=== PATIENT | female | born 1990 | race Caucasian/White ===

== ENCOUNTER 2018-01-03 22:36 | Emergency (ER) | payer OTHER ==
[2018-01-03 23:56] VITALS: RESP 18
--- NOTE | 2018-01-04 00:30 | XR ---
EXAMINATION TYPE: XR chest 2V DATE OF EXAM: 01/04/2018 COMPARISON: NONE HISTORY: Chest pain TECHNIQUE: Frontal and lateral views of the chest are obtained. FINDINGS: Heart and mediastinum are normal. Lungs are clear. Diaphragm is normal. Bony thorax appear s normal. IMPRESSION: Normal chest.
--- NOTE | 2018-01-04 00:46 | ED ---
General Adult HPI - General Chief complaint: Skin/Abscess/Foreign Body Stated complaint: rash Time Seen by Provider: 01/03/18 23:43 Source: patient Mode of arrival: ambulatory Limitations: no limitations - History of Present Illness Initial comments: 27 her old female presents to the emergency determine for chief complaint of rash 4 days. Patient states the rash is very itchy. Patient states her grandmother thought it might be shingles. Patient does admit to having chickenpox as a child. She denies any fevers or chills. Patient states she has had a cough for the past day and is a smoker. She denies a history of asthma. Patient denies any other past medical history. She denies being diabetic. Patient does have a primary care provider that she can follow-up with.Patient has no other complaints at this time including shortness of breath , chest pain, abdominal pain, nausea or vomiting, headache, or visual changes. - Related Data Previous Rx's Medication Instructions Recorded valACYclovir HCL [Valacyclovir] 1,000 mg PO Q8H 7 Days tab 01/04/18 Allergies Allergy/AdvReac Type Severity Reaction Status Date / Time No Known Allergies Allergy Verified 01/03/18 22:48 Review of Systems ROS Statement: Those systems with pertinent positive or pertinent negative responses have been documented in the HPI. ROS Other: All systems not noted in ROS Statement are negative. Past Medical History Past Medical History: No Reported History History of Any Multi-Drug Resistant Organisms: None Reported Past Surgical History: Section Past Psychological History: No Psychological Hx Reported Smoking Status: Current every day smoker Past Alcohol Use History: Occasional Past Drug Use History: Marijuana General Exam Limitations: no limitations General appearance: alert, in no apparent distress Head exam: Present: atraumatic, normocephalic, normal inspection Eye exam: Present: normal appearance, PERRL, EOMI. Absent: scleral icterus, conjunctival injection, periorbital swelling ENT exam: Present: normal exam, normal oropharynx, mucous membranes moist, normal external ear exam Neck exam: Present: normal inspection, full ROM. Absent: tenderness, meningismus, lymphadenopathy Respiratory exam: Present: normal lung sounds bilaterally. Absent: respiratory distress, wheezes, rales, rhonchi, stridor Cardiovascular Exam: Present: regular rate, normal rhythm, normal heart sounds. Absent: systolic murmur, diastolic murmur, rubs, gallop, clicks GI/Abdominal exam: Present: soft, normal bowel sounds. Absent: distended, tenderness, guarding, rebound, rigid Neurological exam: Present: alert, oriented X3, CN II-XII intact Psychiatric exam: Present: normal affect, normal mood Skin exam: Present: rash (Patient does have patches of vesicles noted throughout the left T5 dermatome. Some are crusting. No superficial infection noted. No rash noted to the right side of body.) Course Vital Signs 01/03/18 01/03/18 22:45 23:51 Temperature 98.9 F Pulse Rate 75 Respiratory 16 18 Rate Blood Pressure 119/71 O2 Sat by Pulse 99 Oximetry Medical Decision Making - Medical Decision Making 89 her old female presents to the emergency room for a chief complaint of rash 4 days. Rash does appear to be shingles. There are vesicles noted throughout T5 dermatome on only the left side of the body. Patient also has a cough. Chest x-ray shows a normal chest. Lungs are clear. Discussed with patient that it is rare for someone her age to have shingles. Discussed possibility of immunosuppression and importance of following up with primary care provider for this. Patient will be treated with valacyclovir. She will return to the emergency Department if she has any worsening symptoms which were discussed with her. Dr Moore also saw patient - Lab Data Lab Results 01/03/18 Range/Units 23:56 Urine HCG, Qual Not Detected (Not Detectd) Disposition Clinical Impression: Herpes zoster Disposition: HOME SELF-CARE Condition: Good Instructions: Shingles (ED) Additional Instructions: Please take medication as directed. Please follow-up with primary care in 1-2 days. Return immediately to the emergency department if you have any worsening symptoms or fevers. Prescriptions: valACYclovir HCL [Valacyclovir] 1,000 mg PO Q8H 7 Days tab Is patient prescribed a controlled substance at d/c from ED?: No Referrals: Pati Palafox DO [Primary Care Provider] - 1-2 days Time of Disposition: 01:16
[2018-01-04 01:11] VITALS: BP 117/63; PULSE 68; TEMP 98.3
== END 2018-01-04 01:33 | disposition home or self-care (01) ==
LOC: EC 22:36
DX: B02.9 Zoster without complications (principal); R05 Cough; F17.200 Nicotine dependence, unspecified, uncomplicated; Z32.02 Encounter for pregnancy test, result negative
CPT/HCPCS: 71046; 81025; 99283

== ENCOUNTER 2018-03-01 11:16 | Emergency (ER) | payer OTHER ==
[2018-03-01 11:29] VITALS: BP 103/69; PULSE 89; RESP 20; TEMP 97.8
[2018-03-01] MEDS ORDERED: PROPARACAINE 0.5% OPHTH DROPS 15 ML BTL RIGHT EYE STA (11:31)
[2018-03-01] MEDS ORDERED: TOBRAMYCIN 0.3% OPHTH DROPS 5 ML BTL RIGHT EYE STA (11:46)
[2018-03-01] MEDS ORDERED: DIPH,PERTUS(ACELL)TETVAC-LF 0.5 ML VIAL IM ONE (11:46)
--- NOTE | 2018-03-01 11:51 | ED ---
Eye Problem HPI - General Chief complaint: Eye Problems Stated complaint: Eye Problems Time Seen by Provider: 03/01/18 11:31 Source: patient, RN notes reviewed Mode of arrival: ambulatory Limitations: no limitations - History of Present Illness Initial comments: 28-year-old female presents emergency Department with chief complaint of right eye irritation. Patient states she woke up with the symptoms. Patient states her eye is watering and feels as a foreign body. Denies any trauma she does not wear glasses or contacts. Patient denies any trauma. She is unsure when her last tetanus was. Patient states that it was improved with icing at home. She states that it is improved when she keeps her eyes closed - Related Data Previous Rx's Medication Instructions Recorded valACYclovir HCL [Valacyclovir] 1,000 mg PO Q8H 7 Days tab 01/04/18 Allergies Allergy/AdvReac Type Severity Reaction Status Date / Time No Known Allergies Allergy Verified 03/01/18 11:29 Review of Systems ROS Statement: Those systems with pertinent positive or pertinent negative responses have been documented in the HPI. ROS Other: All systems not noted in ROS Statement are negative. Past Medical History Past Medical History: No Reported History History of Any Multi-Drug Resistant Organisms: None Reported Past Surgical History: Section Past Psychological History: No Psychological Hx Reported Smoking Status: Current every day smoker Past Alcohol Use History: Occasional Past Drug Use History: Marijuana General Exam Limitations: no limitations General appearance: alert, in no apparent distress Head exam: Present: atraumatic, normocephalic, normal inspection Eye exam: Present: PERRL, EOMI, conjunctival injection (Right), other (Right eye fluorescein dye was use, slit-lamp which shows corneal abrasion from the 4: 00 to 7 o'clock position no ulceration patient had full relief of symptoms with proparacaine). Absent: normal appearance, scleral icterus, periorbital swelling ENT exam: Present: normal exam, normal oropharynx, mucous membranes moist Neck exam: Present: normal inspection, full ROM. Absent: tenderness, meningismus, lymphadenopathy Respiratory exam: Present: normal lung sounds bilaterally. Absent: respiratory distress, wheezes, rales, rhonchi, stridor Cardiovascular Exam: Present: regular rate, normal rhythm, normal heart sounds. Absent: systolic murmur, diastolic murmur, rubs, gallop, clicks Skin exam: Present: warm, dry, intact, normal color. Absent: rash Course Vital Signs 03/01/18 11:27 Temperature 97.8 F Pulse Rate 89 Respiratory 20 Rate Blood Pressure 103/69 O2 Sat by Pulse 98 Oximetry Medical Decision Making - Medical Decision Making 28-year-old female presented for right eye irritation. Patient has a corneal abrasion. Patient was started on Tobrex eyedrops 1 drop every 4 hours for 5 days. Patient follow-up with ophthalmology. Patient's tetanus is updated. Disposition Clinical Impression: Corneal abrasion Disposition: HOME SELF-CARE Condition: Stable Instructions: Corneal Abrasion (ED) Additional Instructions: Please return to the Emergency Department if symptoms worsen or any other concerns. Is patient prescribed a controlled substance at d/c from ED?: No Referrals: Evelin Antunez DO [Primary Care Provider] - 1-2 days Galindo White MD [STAFF PHYSICIAN] - 1-2 days Time of Disposition: 11:51
== END 2018-03-01 12:16 | disposition home or self-care (01) ==
LOC: EC 11:16
DX: S05.01XA Injury of conjunctiva and corneal abrasion without foreign body, right eye, initial encounter (principal); F17.200 Nicotine dependence, unspecified, uncomplicated; Z23 Encounter for immunization
CPT/HCPCS: 90471; 90715; 99283

== ENCOUNTER 2018-07-21 13:00 | Emergency (ER) | payer OTHER ==
[2018-07-21] MEDS ORDERED: DIPH,PERTUS(ACELL)TETVAC-LF 0.5 ML VIAL IM ONE (13:51)
[2018-07-21] MEDS ORDERED: TOPICAL SKIN ADHESIVE 1 EACH AMP TOPICAL ONE (13:51)
--- NOTE | 2018-07-21 13:59 | ED ---
General Adult HPI - General Chief complaint: Wound/Laceration Stated complaint: Finger laceration, [facility] Time Seen by Provider: 07/21/18 13:32 Source: patient, RN notes reviewed Mode of arrival: ambulatory Limitations: no limitations - History of Present Illness Initial comments: Patient 28-year-old female presented to the emergency room today with chief complaint of laceration to the third digit of the right hand. 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 She states she's unsure of her tetanus status. Patient says that she was able to stop bleeding. Patient states she has full range motion. She denies any other complaints or symptoms. Patient denies any recent fever, chills, shortness of breath, chest pain, back pain, abdominal pain, nausea or vomiting, numbness or tingling, headaches or visual changes, or any other complaints. - Related Data Previous Rx's Medication Instructions Recorded valACYclovir HCL [Valacyclovir] 1,000 mg PO Q8H 7 Days tab 01/04/18 Allergies Allergy/AdvReac Type Severity Reaction Status Date / Time No Known Allergies Allergy Verified 07/21/18 13:21 Review of Systems ROS Statement: Those systems with pertinent positive or pertinent negative responses have been documented in the HPI. ROS Other: All systems not noted in ROS Statement are negative. Past Medical History Past Medical History: No Reported History History of Any Multi-Drug Resistant Organisms: None Reported Past Surgical History: Section Past Psychological History: No Psychological Hx Reported Smoking Status: Current every day smoker Past Alcohol Use History: Occasional Past Drug Use History: Marijuana General Exam - General Exam Comments Initial Comments: General: The patient is awake and alert, in no distress, and does not appear acutely ill. Eye: There is normal conjunctiva bilaterally. No signs of icterus. Ears, nose, mouth and throat: There are moist mucous membranes and no oral lesions. Neck: The neck is supple, there is no tenderness or JVD. Musculoskeletal: Normal ROM, no tenderness. Strength 5/5. Sensation intact. Pulses equal bilaterally 2+. Neurological: A&O x 3. CN II-XII intact, There are no obvious motor or sensory deficits. Coordination appears grossly intact. Speech is normal. Skin: Patient does have a 1 cm linear laceration running on an angle to the lateral aspect of the third digit of the right hand. No active bleeding. Psychiatric: Cooperative, appropriate mood & affect, normal judgment. Limitations: no limitations Course Vital Signs 07/21/18 13:19 Temperature 98.5 F Pulse Rate 69 Respiratory 18 Rate Blood Pressure 110/60 O2 Sat by Pulse 99 Oximetry Procedures - Procedures Initial comment: Patient does have 1 cm linear laceration to the third digit of the right hand. This was cleaned and irrigated with Betadine and saline. Wound edges were approximated and closed with Dermabond. Patient tolerated well. Medical Decision Making - Medical Decision Making Patient tetanus updated here in the emergency room. Wound edges were closed with Dermabond. Patient discharged home advised watch for any signs of infection. Advised return for any other concerns. Disposition Clinical Impression: Laceration Disposition: HOME SELF-CARE Condition: Good Instructions (If sedation given, give patient instructions): Finger Laceration (ED) Additional Instructions: Please allow the glue to fall thoughts over the next 3-5 days. Warfarin signs of infection which may include increased pain times one, redness, fever or chills. Return here to the emergency room symptoms increase worsen or for any other concerns. Is patient prescribed a controlled substance at d/c from ED?: No Referrals: Evelin Antunez DO [Primary Care Provider] - 1-2 days Time of Disposition: 14:54
[2018-07-21 14:58] VITALS: BP 133/76; PULSE 62; RESP 19; TEMP 97.4
== END 2018-07-21 14:58 | disposition home or self-care (01) ==
LOC: EC 13:00
DX: S61.212A Laceration without foreign body of right middle finger without damage to nail, initial encounter (principal); F17.200 Nicotine dependence, unspecified, uncomplicated; Z23 Encounter for immunization; W26.0XXA Contact with knife, initial encounter; Y93.G1 Activity, food preparation and clean up; Y92.69 Other specified industrial and construction area as the place of occurrence of the external cause; Y99.0 Civilian activity done for income or pay
CPT/HCPCS: 12001; 90471; 90715; 99282

== ENCOUNTER 2019-04-03 12:12 | Emergency (ER) | payer OTHER ==
[2019-04-03 13:22] VITALS: RESP 18
--- NOTE | 2019-04-03 13:56 | XR ---
EXAMINATION TYPE: XR chest 2V, XR ribs 4 views RT DATE OF EXAM: 04/03/2019 COMPARISON: 01/04/2018 HISTORY: 29-year-old female with cough and right-sided rib pain FINDINGS: The cardiomediastinal silhouette, aorta, and pulmonary vasculature are within normal limits. Mild lorie tral peribronchial cuffing. Otherwise, lungs and pleural spaces are clear. No displaced right rib fracture. IMPRESSION: Mild central peribronchial cuffing can be seen with bronchitis or asthma. Otherwise, no acute cardiop ulmonary process. No displaced right rib fracture.
[2019-04-03] MEDS ORDERED: IPRATROPIUM-ALBUTEROL 3 ML NEB INHALATION STA (14:00)
[2019-04-03] MEDS ORDERED: methylPREDNISolone SOD SUCCI 125 MG/2 ML VIAL IM ONE (14:00)
[2019-04-03] MEDS ORDERED: IBUPROFEN 600 MG STARTER PACK 4 TAB BTL PO STA (14:26)
--- NOTE | 2019-04-03 14:26 | ED ---
URI HPI - General Source: patient, RN notes reviewed, old records reviewed Mode of arrival: ambulatory Limitations: no limitations <Fabby Jain - Last Filed: 04/04/19 06:38> <Kaylan Mclean - Last Filed: 04/04/19 22:20> - General Chief Complaint: Upper Respiratory Infection Stated Complaint: cough/rib pain Time Seen by Provider: 04/03/19 13:38 - History of Present Illness Initial Comments: Patient's pleasant 21-year-old female sensory prescription today with cough for the past 3 weeks. Patient reports she had a coughing fit today and felt a pop in her right ribs. Patient states that she had worsening pain since then. Patient states that she is a smoker. She states she's trying to quit. She denies any significant fever as of lately but did have a fever a few weeks ago. Patient states that she's had no chest pain at this time denies any abdominal pain nausea or vomiting. (Fabby Jain) - Related Data Previous Rx's Medication Instructions Recorded valACYclovir HCL [Valacyclovir] 1,000 mg PO Q8H 7 Days tab 01/04/18 Albuterol Inhaler [Ventolin Hfa 1 - 2 puff INHALATION RT-Q6H PRN 04/03/19 Inhaler] #1 inhaler Azithromycin [Zithromax Z-pack] 250 mg PO DIRECTED #6 tab 04/03/19 methylPREDNISolone Dose Pack 4 mg PO DIRECTED #21 package 04/03/19 [Medrol Dose Pack] Allergies Allergy/AdvReac Type Severity Reaction Status Date / Time No Known Allergies Allergy Verified 04/03/19 13:16 Review of Systems ROS Other: All systems not noted in ROS Statement are negative. <Fabby Jain - Last Filed: 04/04/19 06:38> ROS Other: All systems not noted in ROS Statement are negative. <Kaylan Mclean - Last Filed: 04/04/19 22:20> ROS Statement: Those systems with pertinent positive or pertinent negative responses have been documented in the HPI. Past Medical History Past Medical History: No Reported History History of Any Multi-Drug Resistant Organisms: None Reported Past Surgical History: Section Past Psychological History: No Psychological Hx Reported Smoking Status: Current every day smoker Past Alcohol Use History: Occasional Past Drug Use History: Marijuana <Fabby Jain - Last Filed: 04/04/19 06:38> General Exam Limitations: no limitations General appearance: alert, in no apparent distress Head exam: Present: atraumatic, normocephalic, normal inspection Eye exam: Present: normal appearance, PERRL, EOMI. Absent: scleral icterus, conjunctival injection, periorbital swelling ENT exam: Present: normal exam, mucous membranes moist Neck exam: Present: normal inspection. Absent: tenderness, meningismus, lymphadenopathy Respiratory exam: Present: wheezes, other (She has tenderness over the right ribs.). Absent: normal lung sounds bilaterally, respiratory distress, rales, rhonchi, stridor Cardiovascular Exam: Present: regular rate, normal rhythm, normal heart sounds. Absent: systolic murmur, diastolic murmur, rubs, gallop, clicks GI/Abdominal exam: Present: soft, normal bowel sounds. Absent: distended, tenderness, guarding, rebound, rigid Extremities exam: Present: normal inspection, full ROM, normal capillary refill. Absent: tenderness, pedal edema, joint swelling, calf tenderness Back exam: Present: normal inspection Neurological exam: Present: alert, oriented X3, CN II-XII intact Psychiatric exam: Present: normal affect, normal mood Skin exam: Present: warm, dry, intact, normal color. Absent: rash <Fabby Jain - Last Filed: 04/04/19 06:38> - General Exam Comments Initial Comments: Alert and oriented 21-year-old female. No distress. (Fabby Jain) Course Vital Signs 04/03/19 04/03/19 04/03/19 13:16 14:11 14:20 Temperature 98.6 F Pulse Rate 69 72 78 Respiratory 18 Rate Blood Pressure 113/69 O2 Sat by Pulse 97 Oximetry 04/03/19 14:52 Temperature 98.2 F Pulse Rate 72 Respiratory 18 Rate Blood Pressure 129/67 O2 Sat by Pulse 98 Oximetry Medical Decision Making <SusyFabby - Last Filed: 04/04/19 06:38> <Kaylan Mclean - Last Filed: 04/04/19 22:20> - Medical Decision Making 3-year-old female with 3 weeks of cough. She did coughing spell and popping sensation in her right rib. She does have some tenderness. No bruising. Patient's chest x-ray shows evidence of asthmatic bronchitis picture. No focal pneumonia. Patient did have significant wheezing. She is given IM Solu-Medrol, and breathing treatment and she has had improvement of her breathing after DuoNeb. Patient at this time of discharge with diagnosis of bronchitis. With p ersistent cough for 3 weeks discussed covering for atypical pneumonia. Patient be discharged with steroids and azithromycin as well as albuterol inhaler. Discussed return parameters and PCP follow-up. (Fabby Jain) I was available for consultation in the emergency department. The history and physical exam were done by the midlevel provider. I was consulted for this [facility]. I reviewed the case with the midlevel provider and based on their presentation of the patient, I agree with the assessment, medical decision making and plan of care as documented. Chart was dictated using [employer] dictation software. Attempts were made to correct any dictation errors however some typographical errors may persist. (Kaylan Mclean) Disposition Is patient prescribed a controlled substance at d/c from ED?: No Time of Disposition: 14:25 <Fabby Jain - Last Filed: 04/04/19 06:38> <Kaylan Mclean - Last Filed: 04/04/19 22:20> Clinical Impression: Bronchitis, Rib tenderness Disposition: HOME SELF-CARE Condition: Good Instructions (If sedation given, give patient instructions): Acute Bronchitis (ED) Additional Instructions: Patient advised to follow-up with your primary care physician. Take the antibiotics and steroids as prescribed. Using inhaler as well. Return to the emergency department if any alarming signs or symptoms occur. Prescriptions: methylPREDNISolone Dose Pack [Medrol Dose Pack] 4 mg PO DIRECTED #21 package Albuterol Inhaler [Ventolin Hfa Inhaler] 1 - 2 puff INHALATION RT-Q6H PRN #1 inhaler PRN Reason: Shortness Of Breath Azithromycin [Zithromax Z-pack] 250 mg PO DIRECTED #6 tab Referrals: Evelin Antunez DO [Primary Care Provider] - 1-2 days
[2019-04-03 14:56] VITALS: BP 129/67; PULSE 72; TEMP 98.2
== END 2019-04-03 14:52 | disposition home or self-care (01) ==
LOC: EC 12:12
DX: J40 Bronchitis, not specified as acute or chronic (principal); R07.81 Pleurodynia; F17.200 Nicotine dependence, unspecified, uncomplicated
CPT/HCPCS: 94640; 71100; 71046; 99284; 96372; J2930

== ENCOUNTER 2021-08-23 02:30 | Emergency (ER) | payer OTHER ==
[2021-08-23 04:05] VITALS: TEMP 98
[2021-08-23] MEDS ORDERED: ACETAMINOPHEN TAB 500 MG TAB PO STA (04:07)
[2021-08-23] MEDS ORDERED: ONDANSETRON ODT 4 MG TAB PO STA (04:07)
[2021-08-23 05:23] LABS: Appearance,Urine Clear (Clear); Bacteria,Urine Rare /hpf; Bilirubin,Urine Negative (Negative); Blood,Urine Moderate (Negative); Color,Urine Light Yellow; Glucose,Urine (UA) Negative (Negative); Ketones,Urine Negative (Negative); Leukocyte Esterase,Urine Negative (Negative); Mucus,Urine Rare /hpf; Nitrite,Urine Negative (Negative); PH, Urine 5.5 (5.0-8.0); Protein,Urine Negative (Negative); RBC,Urine 4 /hpf (0-5); Specific Gravity,Urine 1.014 (1.001-1.035); Squamous Epithelial Cell,Urine 2 /hpf (0-4); Urobilinogen,Urine <2.0 mg/dL (<2.0); WBC,Urine 2 /hpf (0-5)
[2021-08-23 06:13] LABS: Basophils # (A) 0.1 k/uL (0-0.2); Basophils % (A) 1 %; Eosinophils # (A) 0.2 k/uL (0-0.7); Eosinophils % (A) 3 %; HCT 40.5 % (34.0-46.0); HGB 13.1 gm/dL (11.4-16.0); Lymphocytes # (A) 3.2 k/uL (1.0-4.8); Lymphocytes % (A) 34 %; MCH 30.8 pg (25.0-35.0); MCHC 32.3 g/dL (31.0-37.0); MCV 95.6 fL (80.0-100.0); Mean Platelet Volume 7.1; Monocytes # (A) 0.5 k/uL (0-1.0); Monocytes % (A) 5 %; Neutrophils # (A) 5.1 k/uL (1.3-7.7); Neutrophils % (A) 55 %; Platelet Count 290 k/uL (150-450); RBC 4.24 m/uL (3.80-5.40); WBC 9.3 k/uL (3.8-10.6)
[2021-08-23 06:50] LABS: ALT 14 U/L (4-34); AST 18 U/L (14-36); African American GFR (CKD) >90 (>60 ml/min/1.73 sqM); Albumin 4.3 g/dL (3.5-5.0); Alkaline Phosphatase 59 U/L (38-126); Anion Gap 10 mmol/L; Blood Urea Nitrogen 12 mg/dL (7-17); Calcium 9.1 mg/dL (8.4-10.2); Carbon Dioxide 21 mmol/L (22-30); Chloride 104 mmol/L (98-107); Glucose 92 mg/dL (74-99); Non-African American GFR(CKD) >90 (>60 ml/min/1.73 sqM); Potassium 4.5 mmol/L (3.5-5.1); Sodium 135 mmol/L (137-145); Total Bilirubin 0.4 mg/dL (0.2-1.3)
--- NOTE | 2021-08-23 07:18 | ED ---
Female Urogenital HPI - General Chief complaint: Vaginal Bleeding Stated complaint: 9wks pgt, vaginal bleeding/cramping Time Seen by Provider: 08/23/21 06:00 Source: patient, RN notes reviewed Mode of arrival: ambulatory - History of Present Illness Initial comments: This is a 31-year-old female who presents to the emergency department for vaginal bleeding and cramping. Patient states that around midnight she developed cramping and vaginal bleeding. She has not passed any clots. Denies any urinary symptoms. She is approximately 9 weeks , and has not yet established with an director of physician practices. Patient states that she has had difficulty getting into one. This is her second , her first was in 2012 and had no complications. The director of physician practices she saw then has since retired. By the time I had evaluated patient, she had already received 1 g of Tylenol. Patient states that her cramping had significantly improved after taking this. Denies any fevers, chills, sore throat, cough, dyspnea, chest pain, palpitations, nausea, vomiting, diarrhea, back pain, or headaches. MD Complaint: vaginal bleeding Quality: cramping Patient : Yes Number of weeks : 9 - Related Data Home Medications Medication Instructions Recorded Confirmed Pnv,Calcium 72/Iron/Folic Acid 1 tab PO DAILY 08/23/21 08/23/21 [ Plus Tablet] Previous Rx's Medication Instructions Recorded Cephalexin [Keflex] 500 mg PO Q8HR 5 Days #15 cap 08/23/21 Allergies Allergy/AdvReac Type Severity Reaction Status Date / Time No Known Allergies Allergy Verified 08/23/21 08:34 Review of Systems ROS Statement: Those systems with pertinent positive or pertinent negative responses have been documented in the HPI. ROS Other: All systems not noted in ROS Statement are negative. Past Medical History Past Medical History: No Reported History History of Any Multi-Drug Resistant Organisms: None Reported Past Surgical History: Section Past Psychological History: No Psychological Hx Reported Smoking Status: Current every day smoker Past Alcohol Use History: Occasional Past Drug Use History: Marijuana General Exam Limitations: no limitations General appearance: alert, in no apparent distress Head exam: Present: atraumatic, normocephalic, normal inspection Respiratory exam: Present: normal lung sounds bilaterally. Absent: respiratory distress, wheezes, rales, rhonchi, stridor Cardiovascular Exam: Present: regular rate, normal rhythm, normal heart sounds. Absent: systolic murmur, diastolic murmur, rubs, gallop, clicks Neurological exam: Present: alert, oriented X3, CN II-XII intact Psychiatric exam: Present: normal affect, normal mood Skin exam: Present: warm, dry, intact, normal color. Absent: rash Course Vital Signs 08/23/21 08/23/21 04:01 09:56 Temperature 98 F Pulse Rate 69 70 Respiratory 19 16 Rate Blood Pressure 107/73 110/59 O2 Sat by Pulse 97 96 Oximetry Medical Decision Making - Medical Decision Making This is a 31-year-old female who presents to the emergency department for vaginal bleeding and cramping. Patient noted to have asymptomatic bacteriuria. Will prescribe a course of Keflex. Patient is Rh+ and no Rhogam is indicated. Obstetrics ultrasound obtained. This revealed a viable intrauterine . Subchorionic hematoma was not visualized, however it was noted that with the patient's body habitus and transabdominal imaging, the US did not offer the best evaluation, and this cannot be ruled out. Patient noted that bleeding had significantly improved since she had been in the emergency department. Patient counseled on causes of first trimester bleeding. Advised that bleeding poses a risk for miscarriage. She is advised to establish with an director of physician practices as soon as possible. Return precautions reviewed in depth, the patient is instructed to return to the emergency department with any new, worsening, or concerning symptoms. Patient verbalized understanding. This case was discussed in detail with the attending ED physician. Presentation, findings, and treatment plan discussed in detail as well. - Lab Data Result diagrams: 08/23/21 05:38 08/23/21 05:38 Lab Results 08/23/21 08/23/21 08/23/21 Range/Units 05:09 05:31 05:38 WBC 9.3 (3.8-10.6) k/uL RBC 4.24 (3.80-5.40) m/uL Hgb 13.1 (11.4-16.0) gm/dL Hct 40.5 (34.0-46.0) % MCV 95.6 (80.0-100.0) fL MCH 30.8 (25.0-35.0) pg MCHC 32.3 (31.0-37.0) g/dL RDW 12.0 (11.5-15.5) % Plt Count 290 (150-450) k/uL MPV 7.1 Neutrophils % 55 % Lymphocytes % 34 % Monocytes % 5 % Eosinophils % 3 % Basophils % 1 % Neutrophils # 5.1 (1.3-7.7) k/uL Lymphocytes # 3.2 (1.0-4.8) k/uL Monocytes # 0.5 (0-1.0) k/uL Eosinophils # 0.2 (0-0.7) k/uL Basophils # 0.1 (0-0.2) k/uL Sodium (137-145) mmol/L Potassium (3.5-5.1) mmol/L Chloride (98-107) mmol/L Carbon Dioxide (22-30) mmol/L Anion Gap mmol/L BUN (7-17) mg/dL Creatinine (0.52-1.04) mg/dL Est GFR (CKD-EPI)AfAm (>60 ml/min/1.73 sqM) Est GFR (CKD-EPI)NonAf (>60 ml/min/1.73 sqM) Glucose (74-99) mg/dL Calcium (8.4-10.2) mg/dL Total Bilirubin (0.2-1.3) mg/dL AST (14-36) U/L ALT (4-34) U/L Alkaline Phosphatase (38-126) U/L Total Protein (6.3-8.2) g/dL Albumin (3.5-5.0) g/dL HCG, Quant mIU/mL Urine Color Light Yellow Urine Appearance Clear (Clear) Urine pH 5.5 (5.0-8.0) Ur Specific [place] 1.014 (1.001-1.035) Urine Protein Negative (Negative) Urine Glucose (UA) Negative (Negative) Urine Ketones Negative (Negative) Urine Blood Moderate H (Negative) Urine Nitrite Negative (Negative) Urine Bilirubin Negative (Negative) Urine Urobilinogen <2.0 (<2.0) mg/dL Ur Leukocyte Esterase Negative (Negative) Urine RBC 4 (0-5) /hpf Urine WBC 2 (0-5) /hpf Ur Squamous Epith Cells 2 (0-4) /hpf Urine Bacteria Rare H (None) /hpf Urine Mucus Rare H (None) /hpf Blood Type A Positive Blood Type Recheck A Pos Bld Type Recheck Status No 05/26/22 Range/Units 05:38 WBC (3.8-10.6) k/uL RBC (3.80-5.40) m/uL Hgb (11.4-16.0) gm/dL Hct (34.0-46.0) % MCV (80.0-100.0) fL MCH (25.0-35.0) pg MCHC (31.0-37.0) g/dL RDW (11.5-15.5) % Plt Count (150-450) k/uL MPV Neutrophils % % Lymphocytes % % Monocytes % % Eosinophils % % Basophils % % Neutrophils # (1.3-7.7) k/uL Lymphocytes # (1.0-4.8) k/uL Monocytes # (0-1.0) k/uL Eosinophils # (0-0.7) k/uL Basophils # (0-0.2) k/uL Sodium 135 L (137-145) mmol/L Potassium 4.5 (3.5-5.1) mmol/L Chloride 104 (98-107) mmol/L Carbon Dioxide 21 L (22-30) mmol/L Anion Gap 10 mmol/L BUN 12 (7-17) mg/dL Creatinine 0.57 (0.52-1.04) mg/dL Est GFR (CKD-EPI)AfAm >90 (>60 ml/min/1.73 sqM) Est GFR (CKD-EPI)NonAf >90 (>60 ml/min/1.73 sqM) Glucose 92 (74-99) mg/dL Calcium 9.1 (8.4-10.2) mg/dL Total Bilirubin 0.4 (0.2-1.3) mg/dL AST 18 (14-36) U/L ALT 14 (4-34) U/L Alkaline Phosphatase 59 (38-126) U/L Total Protein 7.0 (6.3-8.2) g/dL Albumin 4.3 (3.5-5.0) g/dL HCG, Quant 735089.0 mIU/mL Urine Color Urine Appearance (Clear) Urine pH (5.0-8.0) Ur Specific [place] (1.001-1.035) Urine Protein (Negative) Urine Glucose (UA) (Negative) Urine Ketones (Negative) Urine Blood (Negative) Urine Nitrite (Negative) Urine Bilirubin (Negative) Urine Urobilinogen (<2.0) mg/dL Ur Leukocyte Esterase (Negative) Urine RBC (0-5) /hpf Urine WBC (0-5) /hpf Ur Squamous Epith Cells (0-4) /hpf Urine Bacteria (None) /hpf Urine Mucus (None) /hpf Blood Type Blood Type Recheck Bld Type Recheck Status - Radiology Data Radiology results: report reviewed, image reviewed Disposition Clinical Impression: Vaginal bleeding during Disposition: HOME SELF-CARE Instructions (If sedation given, give patient instructions): at 7 to 10 Weeks (ED) Additional Instructions: Return to the emergency department with any new, worsening, or concerning symptoms. The Keflex as prescribed for 5 days. Establish with an director of physician practices as soon as you can. Prescriptions: Cephalexin [Keflex] 500 mg PO Q8HR 5 Days #15 cap Is patient prescribed a controlled substance at d/c from ED?: No Referrals: Miller Antunez MD [Primary Care Provider] - 1-2 days
--- NOTE | 2021-08-23 08:43 | US ---
EXAMINATION TYPE: Transabdominal DATE OF EXAM: 08/23/2021 7:33 AM COMPARISON: NONE for this . CLINICAL HISTORY: Vaginal bleeding and cramping, 9 weeks . Vaginal bleeding, mild abdominal c ramping. HX C section. . EXAM PERFORMED: Transabdominal (TA) EXAM MEASUREMENTS: GESTATIONAL AGE / DATING Physician Established: (9 weeks/0 days) EDC: 03/28/2022 Dates by LMP: Unknown Dates by First Scan: This is first scan at this facility. Dates by Current Scan for: (8 weeks/5 days) EDC: 03/30/2022 MATERNAL ANATOMY Uterus: 10.1 x 6.1 x 4.6 cm. Anteverted. Right Ovary: 3.6 x 2.3 x 1.5 cm. Left Ovary: 4.6 x 3.2 x 2.6 cm. Anechoic area seen: 2.8 x 2.2 x 2.3 cm. Post CDS / Adnexa: Appear wnl Presence of free fluid: None seen Presence of corpus luteal cyst: Possible within left ovary- Anechoic area seen: 2.8 x 2.2 x 2.3 cm. Presence of subchorionic bleed: None seen GESTATION / SURVEY CRL: 2.12 cm. (8 weeks/5 days) Yolk Sac (normal less than 6mm): 3.6 mm. Heart Rate: 159 bpm Rhythm: Normal IUP: Viable IUP Date of LMP: Unknown Beta HcG (if available): Not available *Limited due to body habitus. IMPRESSION: Single viable intrauterine as detailed above. No obvious subchorionic hematoma by this valle sabdominal ultrasound. Endovaginal ultrasound can be considered if clinically required.
[2021-08-23 09:58] VITALS: BP 110/59; PULSE 70; RESP 16
== END 2021-08-23 09:57 | disposition home or self-care (01) ==
LOC: EC 02:30
DX: O20.9 Hemorrhage in early pregnancy, unspecified (principal); O99.331 Smoking (tobacco) complicating pregnancy, first trimester; F17.200 Nicotine dependence, unspecified, uncomplicated; O99.321 Drug use complicating pregnancy, first trimester; F12.90 Cannabis use, unspecified, uncomplicated; Z3A.09 9 weeks gestation of pregnancy
CPT/HCPCS: 36415; 76801; 80053; 81001; 84702; 85025; 86900; 86901; 99284

== ENCOUNTER 2022-03-20 06:00 | Inpatient (IN) | payer OTHER ==
[2022-03-20] MEDS ORDERED: CITRIC ACID-SODIUM CITRATE 15 ML CUP PO ONE (10:19)
[2022-03-20] MEDS ORDERED: LACTATED RINGERS 1,000 ML IV ONE (10:31)
[2022-03-20 10:40] LABS: Basophils % (A) 1 %; Eosinophils # (A) 0.1 k/uL (0-0.7); Eosinophils % (A) 1 %; HCT 36.6 % (34.0-46.0); HGB 12.5 gm/dL (11.4-16.0); Lymphocytes # (A) 1.5 k/uL (1.0-4.8); Lymphocytes % (A) 28 %; MCH 30.5 pg (25.0-35.0); MCV 89.7 fL (80.0-100.0); Mean Platelet Volume 8.1; Monocytes # (A) 0.2 k/uL (0-1.0); Monocytes % (A) 4 %; Neutrophils # (A) 3.6 k/uL (1.3-7.7); Neutrophils % (A) 64 %; Platelet Count 234 k/uL (150-450); RBC 4.08 m/uL (3.80-5.40); RDW 13.4 % (11.5-15.5); WBC 5.6 k/uL (3.8-10.6)
[2022-03-20 11:30] LABS: Glucose,Whole Blood 70 mg/dL (70-110)
[2022-03-20] MEDS: LACTATED RINGERS 1,000 ML IV SCH ×4 (11:42→22:40)
[2022-03-20] MEDS ORDERED: NALBUPHINE 10 MG/ML (1 ML AMP) ONE (12:05)
[2022-03-20] MEDS ORDERED: ePHEDrine 50 MG/ML 1 ML VIAL ONE (12:05)
[2022-03-20] MEDS ORDERED: MORPHINE SULFATE (PF) 0.3 MG/0.3 ML SYR ONE (12:05)
[2022-03-20] MEDS ORDERED: OXYTOCIN 30 UNITS/500 ML NS BAG IV ONE (12:05)
[2022-03-20] MEDS ORDERED: ONDANSETRON 4 MG/2 ML VIAL ONE (12:05)
[2022-03-20] MEDS ORDERED: KETOROLAC 15 MG/ML 1 ML VIAL IVP PRN (12:44)
[2022-03-20] MEDS ORDERED: ONDANSETRON 4 MG/2 ML VIAL IVP PRN ×2 (12:44→13:01)
[2022-03-20] MEDS ORDERED: NALOXONE 0.4 MG/ML 1 ML VIAL IV PRN ×2 (12:44→13:01)
[2022-03-20] MEDS ORDERED: diphenhydrAMINE 50 MG/ML 1 ML VIAL IVP PRN ×3 (12:44→13:01)
[2022-03-20] MEDS ORDERED: HYDROmorphone 0.5 MG/0.5 ML SYRINGE IVP PRN (12:44)
--- NOTE | 2022-03-20 12:55 | P.HPOB ---
History of Present Illness H&P Date: 03/20/22 Chief Complaint: IUP @ 38 6/7 weeks, GDM, oligohydramnios 32-year-old at 38 and 6/7 weeks, EDC 03/28/2022. Patient presents to labor and delivery for repeat section with tubal ligation. Patient consented receiving routine care which has been complicated by diet- controlled gestational diabetes. Patient had an ultrasound for growth performed in the office just day with an SHEA of 5. Patient has had reassuring testing. On bloodwork this patient is a blood type of A+, rubella status immune, hepatitis B surface antigen negative, HIV negative, RPR is nonreactive, group beta strep culture negative. Patient does admit to THC use t hroughout the . Review of Systems Constitutional: Denies chills, Denies fatigue, Denies fever Ears, nose, mouth and throat: Denies headache Cardiovascular: Reports leg edema Respiratory: Denies dyspnea Gastrointestinal: Denies constipation, Denies diarrhea, Denies nausea, Denies vomiting Genitourinary: Reports Past Medical History Past Medical History: No Reported History History of Any Multi-Drug Resistant Organisms: None Reported Past Surgical History: Section Past Anesthesia/Blood Transfusion Reactions: No Reported Reaction Past Psychological History: Anxiety, Depression Smoking Status: Former smoker Past Alcohol Use History: None Reported Past Drug Use History: Marijuana - Past Family History Mother Family Medical History: Cancer Father Family Medical History: Diabetes Mellitus Medications and Allergies Home Medications Medication Instructions Recorded Confirmed Type Vit No.180/Iron/Folic 1 tab PO DAILY 08/23/21 03/20/22 History [ Plus Tablet] Allergies Allergy/AdvReac Type Severity Reaction Status Date / Time No Known Allergies Allergy Verified 03/20/22 10:18 Exam Osteopathic Statement: *. No significant issues noted on an osteopathic structural exam other than those noted in the History and Physical/Consult. 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 Results Result Diagrams: 03/20/22 10:28 Assessment and Plan (1) Term Current Visit: Yes Status: Acute Code(s): Z34.90 - ENCNTR FOR SUPRVSN OF NORMAL , UNSP, UNSP TRIMESTER SNOMED Code(s): 16256064 (2) GDM (gestational diabetes mellitus), class A1 Current Visit: Yes Status: Acute Code(s): O24.410 - GESTATIONAL DIABETES MELLITUS IN , DIET CONTROLLED SNOMED Code(s): 93089901 (3) Oligohydramnios Current Visit: Yes Status: Acute Code(s): O41.00X0 - OLIGOHYDRAMNIOS, UNSP TRIMESTER, NOT APPLICABLE OR UNSP SNOMED Code(s): 49517282 Plan: 32-year-old at 38-6/7 weeks that presents for repeat section with tubal ligation. Patient is done with childbearing and is requesting tubal ligation. Surgery is reviewed along with risks including but not limited to infection, bleeding, damage to bladder, bowel, ureteric injury. Patient states understanding and wishes to proceed. Anesthesia is indicated see the patient and we will proceed with scheduled repeat section with tubal ligation.
--- NOTE | 2022-03-20 12:55 | P.OP ---
Date of Procedure: 03/20/22 Preoperative Diagnosis: IUP at 38 and 6, gestational diabetes diet controlled, borderline low SHEA Postoperative Diagnosis: Same plus meconium-stained fluid Procedure(s) Performed: Repeat section with tubal ligation Anesthesia: spinal Surgeon: Mary Alarcon Science Liaison #1: Davie Morley Estimated Blood Loss (ml): 290 IV fluids (ml): 600 Urine output (ml): 200 Pathology: other (Placenta) Condition: stable Disposition: PACU Indications for Procedure: 32-year-old at 38 and 6 with known diet-controlled gestational diabetes, borderline low SHEA of 5. Prior history of 1 desires repeat, family status complete desires permanent sterilization Operative Findings: Normal uterus tubes and ovaries were appreciated. Viable male delivered at 1220, weight of 6 lbs. 15 oz., Apgars of 9 and 9 at one and 5 minutes respectively. Description of Procedure: Patient was taken back to the operating suite where spinal anesthesia was found be adequate by the anesthesia department. She was prepped and draped in the normal sterile fashion in the dorsal supine position. A Pfannenstiel skin incision was made the scalpel and carried through to the underlying layer of fascia. The fascia was incised in the midline and extended laterally. The superior aspect of the fascial incision was then grasped tona clamps, elevated and underlying rectus muscles dissected off sharply. The inferior aspect of the fascial incision was then grasped tona clamps, elevated and underlying rectus muscles dissected off sharply. The rectus muscles were in the midline the peritoneum was identified and entered. The bladder blade was inserted into the pelvis. The vesicouterine peritoneum was visualized in the bladder flap was created sharply blunt dissection. The bladder blade was then reinserted into the pelvis. Hysterotomy incision was made with the scalpel meconium-stained fluid was appreciated the was encountered in a vertex presentation and delivered in the usual fashion. The umbilical cord was doubly clamped and cut and the placenta was delivered manually and the uterus was cleared of all clots and debris. Uterus exteriorized and the hysterotomy incision was closed with 0 Vicryl in a running locked fashion. The left fallopian tube was visualized and grasped with the Filshie clip applicator, this was repeated on the opposite side. Hemostasis was noted on both sides. The hysterotomy incision was then inspected hemostasis was appreciated once again. The uterus was returned to the abdomen. The gutters were cleared of all clots and debris. The hysterotomy incision was inspected hemostasis was appreciated. The peritoneum was loosely reapproximated. Any points of bleeding and the rectus muscles were made hemostatic with the Bovie. The fascia was then closed 0 Vicryl in a running fashion from one lateral edge the other. The subcutaneous tissue was irrigated found to be hemostatic and closed with 3-0 Vicryl. The skin was closed with 4-0 Vicryl subcuticular fashion. All counts were correct 2. Patient and infant tolerated delivery well and are resting comfortably.
[2022-03-20] MEDS ORDERED: METOCLOPRAMIDE 5 MG/ML 2 ML VIAL IVP PRN (13:01)
[2022-03-20] MEDS ORDERED: ZOLPIDEM 5 MG TAB PO PRN (13:01)
[2022-03-20] MEDS ORDERED: diphenhydrAMINE 50 MG CAP PO PRN (13:01)
[2022-03-20] MEDS ORDERED: diphenhydrAMINE 25 MG CAP PO PRN (13:01)
[2022-03-20] MEDS ORDERED: OXYTOCIN 30 UNITS/500 ML NS 30 UNIT in SALINE 1 500ML.BAG IV SCH (13:01)
[2022-03-20] MEDS ORDERED: SIMETHICONE 80 MG CHEWABLE PO PRN (13:01)
[2022-03-20] MEDS: IBUPROFEN IV 800 MG in SODIUM CHLORIDE 0.9% 250 ML IV SCH ×2 (14:04→21:27)
[2022-03-20] MEDS: ACETAMINOPHEN TAB 500 MG TAB PO SCH ×2 (17:48→22:42)
[2022-03-20] MEDS: ACETAMINOPHEN IV (For NPO) 1,000 MG in EMPTY BAG 1 BAG IVPB SCH (17:56)
[2022-03-20] MEDS: IBUPROFEN 600 MG TAB PO SCH (21:27)
[2022-03-20] MEDS: SENNOSIDES-DOCUSATE SODIUM 1 EACH TAB PO SCH (21:27)
[2022-03-20 22:34] VITALS: RESP 16
[2022-03-21] MEDS: IBUPROFEN 600 MG TAB PO SCH ×4 (00:11→20:46)
[2022-03-21] MEDS: IBUPROFEN IV 800 MG in SODIUM CHLORIDE 0.9% 250 ML IV SCH ×4 (00:11→20:37)
[2022-03-21] MEDS: ACETAMINOPHEN IV (For NPO) 1,000 MG in EMPTY BAG 1 BAG IVPB SCH (00:11)
[2022-03-21] MEDS: ACETAMINOPHEN TAB 500 MG TAB PO SCH ×5 (00:12→23:46)
[2022-03-21] MEDS: LACTATED RINGERS 1,000 ML IV SCH ×5 (03:02→19:42)
[2022-03-21 05:42] LABS: Basophils % (A) 0 %; Eosinophils % (A) 0 %; HCT 33.7 % (34.0-46.0); HGB 11.3 gm/dL (11.4-16.0); Lymphocytes # (A) 1.8 k/uL (1.0-4.8); Lymphocytes % (A) 20 %; MCH 30.7 pg (25.0-35.0); MCHC 33.6 g/dL (31.0-37.0); MCV 91.5 fL (80.0-100.0); Mean Platelet Volume 8.2; Monocytes # (A) 0.4 k/uL (0-1.0); Monocytes % (A) 4 %; Neutrophils # (A) 6.5 k/uL (1.3-7.7); Neutrophils % (A) 73 %; Platelet Count 194 k/uL (150-450); RBC 3.68 m/uL (3.80-5.40); RDW 13.3 % (11.5-15.5)
--- NOTE | 2022-03-21 07:56 | P.PN ---
Progress Note - Text Progress Note Date: 03/21/22 (600) Anesthesia Postop day 1 Subjective: Status Post section with Duramorph. Patient seen and examined. Doing well without complaint. VAS 4-5/10. Mild nausea yesterday now resolved. No vomiting or pruritus. Afebrile. Gross lower extremity strength intact. Without apparent anesthetic complications. Objective: Vital signs reviewed Heart: Regular Rate Lungs: Good chest excursion Abdomen: Appears nondistended Assessment: Status post with Duramorph postop day 1 Plan: Continue current care with your medical management. Anticipated and the Duramorph around noon today you may see increased pain needs around this time.
[2022-03-21] MEDS: SENNOSIDES-DOCUSATE SODIUM 1 EACH TAB PO SCH ×2 (08:46→20:46)
[2022-03-21] MEDS: PRENATAL VIT-IRON-FOLIC ACID 1 EACH TABLET PO SCH (08:46)
--- NOTE | 2022-03-21 08:49 | P.PNOBGPC ---
Subjective - Subjective Principal diagnosis: Postop day 1, repeat with tubal ligation Interval history: Patient is doing well postoperatively. She is ambulate without difficulty. We are awaiting spontaneous void. Louise was removed without difficulty last night. Lochia is minimal. She states her pain is well-controlled. Patient reports: Reports appetite normal, Reports pain well controlled, Reports ambulating normally : doing well Objective - Vital Signs Latest vital signs: Vital Signs Temp Pulse Resp BP Pulse Ox 03/21/22 04:00 98.3 F 60 16 129/76 100 03/21/22 00:00 97.9 F 74 16 124/71 99 03/20/22 20:00 98.4 F 65 16 112/71 99 03/20/22 17:44 96 03/20/22 17:00 17 03/20/22 15:03 95.7 F L 68 16 120/67 03/20/22 14:55 61 16 118/66 03/20/22 14:25 50 L 16 113/63 100 03/20/22 13:55 50 L 16 113/63 96 03/20/22 13:40 51 L 16 120/69 98 03/20/22 13:25 16 88/52 98 03/20/22 13:10 60 16 120/57 97 03/20/22 12:55 97 F L 73 16 117/58 97 03/20/22 10:32 96.8 F L 62 16 137/76 98 Intake and Output 03/20/22 03/21/22 03/21/22 22:59 06:59 14:59 Output Total 350 450 Balance -350 -450 Output: Urine 350 450 Uretheral (Louise) 350 450 - Exam Extremities: Present: normal, edema Abdomen: Present: normal appearance, soft Incision: Present: normal, intact Uterus: Present: normal, firm - Labs Labs: Abnormal Lab Results - Last 24 Hours (Table) 03/21/22 Range/Units 05:03 RBC 3.68 L (3.80-5.40) m/uL Hgb 11.3 L (11.4-16.0) gm/dL Hct 33.7 L (34.0-46.0) % Assessment and Plan (1) Term Current Visit: Yes Status: Acute Code(s): Z34.90 - ENCNTR FOR SUPRVSN OF NORMAL , UNSP, UNSP TRIMESTER SNOMED Code(s): 11489126 (2) GDM (gestational diabetes mellitus), class A1 Current Visit: Yes Status: Acute Code(s): O24.410 - GESTATIONAL DIABETES MELLITUS IN , DIET CONTROLLED SNOMED Code(s): 42879107 (3) Oligohydramnios Current Visit: Yes Status: Acute Code(s): O41.00X0 - OLIGOHYDRAMNIOS, UNSP TRIMESTER, NOT APPLICABLE OR UNSP SNOMED Code(s): 23295491 (4) S/P section Current Visit: Yes Status: Acute Code(s): Z98.891 - HISTORY OF UTERINE SCAR FROM PREVIOUS SURGERY SNOMED Code(s): 781979134 (5) Family planning Current Visit: Yes Status: Acute Code(s): Z30.09 - ENCOUNTER FOR OT GENERAL CNSL AND ADVICE ON CONTRACEPTION SNOMED Code(s): 998677468 Plan: Patient is doing well postoperatively. Awaiting spontaneous void, and continue routine postoperative care. A discharge home tomorrow.
[2022-03-22] MEDS: IBUPROFEN 600 MG TAB PO SCH ×4 (02:39→19:28)
[2022-03-22] MEDS: PRENATAL VIT-IRON-FOLIC ACID 1 EACH TABLET PO SCH (08:33)
[2022-03-22] MEDS: SENNOSIDES-DOCUSATE SODIUM 1 EACH TAB PO SCH ×2 (08:33→22:13)
[2022-03-22] MEDS: ACETAMINOPHEN TAB 500 MG TAB PO SCH ×3 (08:33→23:36)
--- NOTE | 2022-03-22 10:13 | P.PNOBGPC ---
Subjective - Subjective Principal diagnosis: Postop day 2, repeat with tubal ligation Interval history: Patient is doing well . She is ambulating and voiding without difficulty. She is tolerating a regular diet without nausea or vomiting. Her infant remains in the nursery for a pneumothorax. Patient reports: Reports appetite normal, Reports voiding normally, Reports pain well controlled, Reports ambulating normally [place]: doing well (In special care nursery, observation for pneumothorax.) Objective - Vital Signs Latest vital signs: Vital Signs Temp Pulse Resp BP Pulse Ox 03/22/22 08:00 98.1 F 82 16 125/60 97 03/22/22 00:00 97.8 F 73 16 134/76 97 03/21/22 16:00 98.4 F 74 16 109/60 97 03/21/22 12:00 98.3 F 72 16 115/64 98 - Exam Extremities: Present: normal, edema Abdomen: Present: normal appearance Incision: Present: normal, dry, intact Uterus: Present: normal, firm Assessment and Plan (1) Term Current Visit: Yes Status: Acute Code(s): Z34.90 - ENCNTR FOR SUPRVSN OF NORMAL , UNSP, UNSP TRIMESTER SNOMED Code(s): 80777667 (2) GDM (gestational diabetes mellitus), class A1 Current Visit: Yes Status: Acute Code(s): O24.410 - GESTATIONAL DIABETES MELLITUS IN , DIET CONTROLLED SNOMED Code(s): 67551700 (3) Oligohydramnios Current Visit: Yes Status: Acute Code(s): O41.00X0 - OLIGOHYDRAMNIOS, UNSP TRIMESTER, NOT APPLICABLE OR UNSP SNOMED Code(s): 96333639 (4) S/P section Current Visit: Yes Status: Acute Code(s): Z98.891 - HISTORY OF UTERINE SCAR FROM PREVIOUS SURGERY SNOMED Code(s): 199065747 (5) Family planning Current Visit: Yes Status: Acute Code(s): Z30.09 - ENCOUNTER FOR OTH GENERAL CNSL AND ADVICE ON CONTRACEPTION SNOMED Code(s): 503308016 Plan: Patient is doing well . We'll continue routine postoperative care
[2022-03-23] MEDS: IBUPROFEN 600 MG TAB PO SCH (08:44)
[2022-03-23] MEDS: SENNOSIDES-DOCUSATE SODIUM 1 EACH TAB PO SCH (08:44)
[2022-03-23 09:15] VITALS: BP 119/72; PULSE 72; TEMP 98.2
[2022-03-23] MEDS: PRENATAL VIT-IRON-FOLIC ACID 1 EACH TABLET PO SCH (10:06)
--- NOTE | 2022-03-23 11:30 | P.DS ---
Providers Date of admission: 03/20/22 09:54 Expected date of discharge: 03/23/22 Attending physician: Mary Alarcon Primary care physician: Stated None - Discharge Diagnosis(es) (1) Family planning Current Visit: Yes Status: Acute (2) S/P section Current Visit: Yes Status: Acute Hospital Course: the patient is a 32-year-old 2 para 1001 admitted at 38-6/7 weeks by good dating parameters perches admitted to labor and delivery for repeat section with tubal ligation having consented to these procedures in the office. She carries a history of a previous section and was scheduled for repeat next week but was found in the office to have an amniotic fluid index of just over 5. She therefore was admitted for repeat section secondary to oligohydramnios. She was taken the operating room where she underwent repeat low transverse section with intraoperative bilateral tubal occlusion using Filshie clips without complication. she was delivered of a viable 6 lbs. 15 oz. baby boy with Apgars of 9 at 1 minute and 9 at 5 minutes. Her and postoperative courses were unremarkable with vital signs being stable and her temperature was afebrile throughout. She remained in the hospital for next today secondary to the requiring treatment for elevated bilirubin. She was deemed stable for discharge on postoperative day #3 and was discharged home to follow-up in the office in 2 weeks for an incision check and 6 weeks routinely. Discharge instructions included calling for any significantly increased bleeding or foul-smelling lochia, significantly increased fever abdominal pain, perineal complaints, breast complaints, incisional complaints, or any also concerned her. She was additionally instructed to have nothing in the vagina for at least 6 weeks time to include intercourse. She is instructed to do no heavy lifting over the same period of time. She was last instructed to do no driving until off of all pain medications or 2 weeks' time, whichever came first. She understood her instructions and agrees to follow up as noted above. Discharge medications included [id number] analgesic pain medications as well as a prescription for Tylenol No. 3, 1-2 by mouth every 6 hours when necessary pain, #20 dispensed with no refills. Maternal blood type is A+ and rubella status is immune. Discharge hemoglobin and hematocrit were 11.3 and 33.7 respectively. Procedures: #1. Repeat low transverse section #2. Intraoperative bilateral tubal occlusion with Filshie clips Patient Condition at Discharge: Stable Plan - Discharge Summary New Discharge Prescriptions: No Action Vit No.180/Iron/Folic [ Plus Tablet] 1 tab PO DAILY Discharge Medication List Vit No.180/Iron/Folic [ Plus Tablet] 1 tab PO DAILY 08/23/21 [History] Follow up Appointment(s)/Referral(s): Maricruz Luis MD [STAFF PHYSICIAN] - 2 Weeks Discharge Disposition: HOME SELF-CARE
== END 2022-03-23 14:00 | disposition home or self-care (01) | DRG 784 ==
LOC: 4FBP 09:54
PROVIDERS: ADMIT Obstetrics & Gynecology Obstetrics; ATTEND Obstetrics & Gynecology Obstetrics
PROC: 0UL70CZ Occlusion of Bilateral Fallopian Tubes with Extraluminal Device, Open Approach (ICD-10-PCS; 2022-03-20)
PROC: 10D00Z1 Extraction of Products of Conception, Low, Open Approach (ICD-10-PCS; principal; 2022-03-20 06:00)
DX: O34.211 Maternal care for low transverse scar from previous cesarean delivery (principal); O41.03X0 Oligohydramnios, third trimester, not applicable or unspecified; O99.324 Drug use complicating childbirth; Z30.2 Encounter for sterilization; O77.0 Labor and delivery complicated by meconium in amniotic fluid; O24.420 Gestational diabetes mellitus in childbirth, diet controlled; F12.90 Cannabis use, unspecified, uncomplicated; Z37.0 Single live birth; Z3A.38 38 weeks gestation of pregnancy; Z87.891 Personal history of nicotine dependence; Z28.310 Unvaccinated for COVID-19
CPT/HCPCS: 85025; 86850; 86900; 86901